=== PATIENT | male | born 1990 | race Two or more races ===

== ENCOUNTER 2019-11-28 04:54 | Emergency (ER) | payer SELFPAY ==
[~2019-11-28] VITALS: Ht 180.3 cm; Wt 69.9 kg
[2019-11-28] MEDS ORDERED: ONDANSETRON HCL/PF 4 MG/2 ML VIAL ONE (05:06)
--- NOTE | 2019-11-28 05:14 | NUR ---
PT [id number] FROM HOME FOR ALCOHOL INTOXICATION AND NAUSEA/VOMITTING. PT REC'D 4MG ZOFRAN EN ROUTE, PT ARRIVED TO [facility] STILL NAUSEAOUS AND DRY HEAVING. PT OPENS EYES TO PAINFUL STIMULI. VITAL SIGNS STABLE. RESPIRATIONS EVEN AND UNLABORED. SKIN WARM AND INTACT. NO ACUTE DISTRESS NOTED AT THIS TIME. PLACED ON MONITOR, WILL CONTINUE TO MONITOR
[2019-11-28] MEDS ORDERED: IV NS 0.9% 1,000 ML IV ONE (05:30)
[2019-11-28] MEDS ORDERED: ONDANSETRON HCL/PF 4 MG/2 ML VIAL IV ONE (05:30)
--- NOTE | 2019-11-28 05:54 | NUR ---
CATALOG SPECIALIST AT BEDSIDE FOR DRAWING BLOOD
[2019-11-28 06:01] LABS: BASOPHILS # (AUTO) 0.1 /CMM (0.0-0.2); BASOPHILS % (AUTO) 0.4 % (0.0-2.0); EOSINOPHILS % (AUTO) 2.8 % (0.0-6.0); HEMATOCRIT 40 % (39-51); HEMOGLOBIN 13.2 g/dL (13.5-17.5); LYMPHOCYTES # (AUTO) 2.4 /CMM (0.8-4.8); LYMPHOCYTES % (AUTO) 15.4 % (20.0-44.0); MEAN CORPUSCULAR HGB CONC 33 g/dl (31.0-36.0); MEAN CORPUSCULAR VOLUME 98 fL (80-96); MONOCYTES # (AUTO) 0.9 /CMM (0.1-1.30); MONOCYTES % (AUTO) 5.9 % (2.0-12.0); NEUTROPHILS # (AUTO) 11.7 /CMM (1.8-8.9); NEUTROPHILS % (AUTO) 75.5 % (43.0-81.0); PLATELET COUNT (AUTO) 180 /CMM (150-450); RED BLOOD CELL COUNT(AUTO) 4.09 MIL/uL (4.5-6.0); WHITE BLOOD COUNT (AUTO) 15.5 K/uL (4.3-11.0)
[2019-11-28 06:07] LABS: CALCIUM, SERUM 7.3 mg/dL (8.5-10.1); CREATININE 0.8 mg/dL (0.6-1.3); POTASSIUM 3.1 mmol/L (3.5-5.1)
--- NOTE | 2019-11-28 06:11 | NUR ---
PT PLACED ON MONITOR AND PULSE OX. VSS.
--- NOTE | 2019-11-28 06:54 | NUR ---
SPOKE WITH SUDHA FROM [facility] INTAKE, STILL NO BEDS AVAILABLE AT THIS TIME
--- NOTE | 2019-11-28 07:05 | NUR ---
assume pt care. sleeping, easily arousable. on monitor. stable vitals. will continue to monitor.
--- NOTE | 2019-11-28 09:55 | NUR ---
pt sleeping, easily arousable. verbally responsive.stable vitals and updated.
--- NOTE | 2019-11-28 11:05 | NUR ---
pt is awake, verbally responsive. states feeling much betted. amulated to the [place] w. steady gait. will continue to mionitor.
--- NOTE | 2019-11-28 11:08 | NUR ---
dr gray at bedside re evaluating patient.
--- NOTE | 2019-11-28 11:34 | NUR ---
provided w/ meal tray.
--- NOTE | 2019-11-28 11:40 | NUR ---
IV removed. Catheter intact and site benign. Pressure and 4x4 applied to site. No bleeding noted.
--- NOTE | 2019-11-28 11:42 | NUR ---
pt ambulatory w/ steady gait. was provided w/ food. discharge home in stable condition.
[2019-11-28 11:43] VITALS: BP 110/52
== END 2019-11-28 11:44 | disposition home or self-care (01) ==
LOC: ER 04:56
DX: F10.129 Alcohol abuse with intoxication, unspecified (principal); R11.2 Nausea with vomiting, unspecified; F32.9 Major depressive disorder, single episode, unspecified; F43.10 Post-traumatic stress disorder, unspecified; F17.200 Nicotine dependence, unspecified, uncomplicated; Z88.1 Allergy status to other antibiotic agents; Y90.9 Presence of alcohol in blood, level not specified
CPT/HCPCS: 36415; 80048; 82962; 83690; 85025; 96361; 96374; 99285; J2405; J7030